=== PATIENT | female | born 1980 | race Asian ===

== ENCOUNTER 2020-06-13 17:13 | Emergency (ER) | payer MEDICAID ==
[~2020-06-13] VITALS: Ht 157.5 cm; Wt 68.2 kg
[2020-06-13 17:20] VITALS: BP 132/87
== END 2020-06-13 21:37 | disposition left against medical advice (07) ==
LOC: EMS 17:13
DX: M54.5 Low back pain (principal); Z53.21 Procedure and treatment not carried out due to patient leaving prior to being seen by health care provider